=== PATIENT | male | born 1950 | race Caucasian/White ===

== ENCOUNTER 2021-07-04 19:20 | Inpatient (IN) | payer OTHER ==
[~2021-07-04] VITALS: Ht 177.8 cm; Wt 62.9 kg
--- NOTE | 2021-07-04 19:25 | NUR ---
Patient to ER bed 03 to gown for evaluation. Side rails up. Addendum: 07/04/21 at 2330 by KULWINDER Patient will be admitted to care of DR CHAPA. Admitted to unit. Will go to room . Belongings list completed. Complete and up to date summary report printed. SBAR report to be given MARIEL ABDI at bedside with opportunity for questions.
--- NOTE | 2021-07-04 19:25 | NUR ---
Report given to Lefty ABDI
[2021-07-04 19:29] VITALS: BP_SYST 165
--- NOTE | 2021-07-04 19:44 | NUR ---
rec report from Josi ABDI. pt in room getting xray at bedside. pt presented to the er withy left anckle pain after he was trimming tree at home from a top of a wall and lost balance and fell down and rolled his left ankle. pt drove himself here. patient is unable to move left foot but does have 2+ cap refill on toes. incident of fall happened about an hour ago. HX hypertension Addendum: 07/04/21 at 6 by KULWINDER pt denies hitting head
[2021-07-04] MEDS ORDERED: KETOROLAC TROMETHAMINE 60 MG/2 ML VIAL IM ONE (19:45)
[2021-07-04] MEDS ORDERED: MORPHINE 4 MG INJ. 4 MG/ML VIAL IVP ONE (20:00)
[2021-07-04] MEDS ORDERED: NACL 0.9% 1,000 ML IV ONE (20:15)
--- NOTE | 2021-07-04 20:54 | NUR ---
EKG PRINTED AND GIVEN TO FOR INTERPRETATION.
[2021-07-04 21:11] LABS: ANION GAP 8 (5-15); CALCIUM 8.3 mg/dL (8.4-11.0); CHLORIDE 108 mmol/L (98-107); CREATININE 2.42 mg/dL (0.55-1.30); GLUCOSE 86 mg/dL (70-99); POTASSIUM 4.7 mmol/L (3.5-5.1); SODIUM SERUM 142 mmol/L (136-145); UREA NITROGEN, BLOOD 27 mg/dL (8-21)
[2021-07-04 21:14] LABS: INR 1.1 (0.80-1.20); PROTHROMBIN TIME 11.1 SECS (9.5-12.5)
[2021-07-04 21:16] LABS: ALANINE AMINOTRANSFERASE 24 U/L (12-78); ALBUMIN 3.8 g/dL (3.4-4.8); ASPARTATE AMINOTRANSFERASE 25 U/L (10-37); TOTAL BILIRUBIN 0.2 mg/dL (0.0-1.0)
[2021-07-04 21:21] LABS: BASOPHILS % (AUTO) 0.5 % (0.0-2.0); EOSINOPHILS % (AUTO) 0.4 % (0.0-4.0); HEMATOCRIT 36.8 % (36-54); HEMOGLOBIN 12.5 g/dL (14.0-18.0); LYMPHOCYTES # (AUTO) 1.3 K/uL (1.0-5.5); MEAN CORPUSCULAR HEMOGLOBIN 31 pg (27-31); MEAN CORPUSCULAR HGB CONC 34 % (32-36); MEAN CORPUSCULAR VOLUME 91 fL (79.0-98.0); MONOCYTES # (AUTO) 0.7 K/uL (0.0-1.0); MONOCYTES % (AUTO) 8.5 % (1.7-9.3); NEUTROPHILS % (AUTO) 74.6 % (40.0-70.0); PLATELET COUNT (AUTO) 245 K/uL (130-430); RED BLOOD CELL COUNT(AUTO) 4.04 MIL/uL (4.2-6.2); RED CELL DISTRIBUTION WIDTH 15.1 % (9.0-15.0); WHITE BLOOD COUNT (AUTO) 8.1 K/uL (4.8-10.8)
[2021-07-04] MEDS ORDERED: NALOXONE HCL 0.4 MG/ML AMP (NARCAN) IVP PRN ×2 (22:00)
[2021-07-04] MEDS ORDERED: MAGNESIUM SULFATE 50 ML IV PRN (22:00)
[2021-07-04] MEDS ORDERED: MORPHINE 2 MG/ML INJ. SYRINGE IVP PRN (22:00)
[2021-07-04] MEDS ORDERED: POTASSIUM CHLORIDE 20 MEQ TAB.PRT.SR PO PRN (22:00)
[2021-07-04] MEDS ORDERED: ONDANSETRON HCL 4 MG/2 ML VIAL IVP PRN (22:00)
[2021-07-04] MEDS ORDERED: LORazepam 2 MG/ML VIAL IVP PRN (22:00)
[2021-07-04] MEDS ORDERED: ACETAMINOPHEN 325 MG TABLET PO PRN (22:00)
[2021-07-04] MEDS ORDERED: DOCUSATE SODIUM 100 MG CAPSULE PO PRN (22:00)
[2021-07-04] MEDS ORDERED: MUPIROCIN 2% TOPICAL OINTMENT 22 GM NS PRN (22:00)
--- NOTE | 2021-07-04 22:39 | NUR ---
PT UNABLE TO PROVIDE URINE SAMPLE
[2021-07-04] MEDS: ZOLPIDEM TARTRATE 5 MG TABLET PO PRN (23:56)
[2021-07-04] MEDS: METOPROLOL TARTRATE 25 MG TABLET PO SCH (23:56)
--- NOTE | 2021-07-05 | NUR ---
ADMISSION NOTE Received patient from ER via gurney. Patient admitted with diagnosis of LT ANKLE FX. Patient is awake, alert, oriented X . Patient oriented to hospital room, call light, toileting, pain management and safety-teach back done. room number is . Personal belongings checked and Belongings List documented. Call light within reach.
[2021-07-05] MEDS: MORPHINE 2 MG/ML INJ. SYRINGE IVP PRN ×5 (00:09→20:29)
[2021-07-05 02:00] VITALS: BP_SYST 135
--- NOTE | 2021-07-05 03:22 | NUR ---
MORPHINE SULFATE 2 MG IVP given for pain & helpful .
--- NOTE | 2021-07-05 04:09 | NUR ---
CONSULTATION PAGED/CALLED Reason for Consultation: LEFT ANKLE FX Person Who was Notified: MARLENA Consulting Physician: Rehab Tech Specialty: Ordering Physician:
[2021-07-05 06:18] LABS: BASOPHILS % (AUTO) 0.6 % (0.0-2.0); EOSINOPHILS # (AUTO) 0.1 K/uL (0.0-0.4); EOSINOPHILS % (AUTO) 0.9 % (0.0-4.0); HEMATOCRIT 34.4 % (36-54); HEMOGLOBIN 11.5 g/dL (14.0-18.0); LYMPHOCYTES # (AUTO) 2.1 K/uL (1.0-5.5); LYMPHOCYTES % (AUTO) 27.6 % (20.5-51.5); MEAN CORPUSCULAR HEMOGLOBIN 31 pg (27-31); MEAN CORPUSCULAR HGB CONC 33 % (32-36); MEAN CORPUSCULAR VOLUME 92 fL (79.0-98.0); MONOCYTES # (AUTO) 0.8 K/uL (0.0-1.0); MONOCYTES % (AUTO) 10.9 % (1.7-9.3); NEUTROPHILS # (AUTO) 4.6 K/uL (1.8-7.7); PLATELET COUNT (AUTO) 226 K/uL (130-430); RED BLOOD CELL COUNT(AUTO) 3.74 MIL/uL (4.2-6.2); RED CELL DISTRIBUTION WIDTH 15.4 % (9.0-15.0); WHITE BLOOD COUNT (AUTO) 7.7 K/uL (4.8-10.8)
[2021-07-05 06:33] LABS: ANION GAP 6 (5-15); CALCIUM 7.8 mg/dL (8.4-11.0); CHLORIDE 108 mmol/L (98-107); CREATININE 2.04 mg/dL (0.55-1.30); GLUCOSE 102 mg/dL (70-99); SODIUM SERUM 140 mmol/L (136-145); UREA NITROGEN, BLOOD 29 mg/dL (8-21)
[2021-07-05 08:10] VITALS: BP_SYST 139
--- NOTE | 2021-07-05 08:10 | NUR ---
Opening Note Patient is laying in bed awake. A/O x4. No apparent distress noted. Vitals as charted. Call light within reach. Safety and fall precautions in place. All needs met.
[2021-07-05] MEDS: METOPROLOL TARTRATE 25 MG TABLET PO SCH ×2 (09:11→20:26)
--- NOTE | 2021-07-05 09:40 | NUR ---
Spoke with Dr. Pradhan Spoke with Dr. Pradhan. Patient will not be having surgery today. Okay to take off NPO. Elevate left ankle and ice per doctor Carolynn. He will be by later today to see patient.
[2021-07-05] MEDS: HEPARIN SODIUM,PORCINE 5,000 UNITS/ML VIAL SUBCUT SCH ×2 (09:54→20:30)
--- NOTE | 2021-07-05 09:55 | NUR ---
Note Administered pain medication as charted. Pain 10/10 on left lower extremity. Call light within reach. Safety and fall precautions in place. All needs met.
[2021-07-05 12:10] VITALS: BP_SYST 144
--- NOTE | 2021-07-05 14:50 | NUR ---
Note Spoke with dipak Dong and provided updates on patient.
--- NOTE | 2021-07-05 15:08 | NUR ---
Pain Medication Administered pain medication as charted.
[2021-07-05 16:10] VITALS: BP_SYST 139
--- NOTE | 2021-07-05 19:00 | NUR ---
Closing Note Patient is laying in bed awake watching television. No apparent distress noted. Call light within reach. Safety and fall precautions in place. All needs met. Endorsed care to shift production supervisor RN.
[2021-07-05 20:00] VITALS: BP_SYST 126
--- NOTE | 2021-07-05 20:00 | NUR ---
Patient left leg kept elevated to pillow with good peripheral sensation able to wiggle toes, pain on movement , per patient Dr. Pradhan came in the afternoon and surgery tommorow instructed NPO post midnight, safety/fall precaution instructed , pain management verbalized understanding.
[2021-07-05] MEDS: D5NS 1,000 ML IV SCH (22:52)
[2021-07-06] VITALS (7 sets, daily range): BP systolic 116–140
--- NOTE | 2021-07-06 00:30 | NUR ---
Patient complaining of severe pain left ankle cold pack applied, elevated to pillow , due pain meds given will monitor, safety fall precaution initiated.
[2021-07-06] MEDS: MORPHINE 2 MG/ML INJ. SYRINGE IVP PRN ×5 (00:40→23:43)
[2021-07-06] MEDS: ZOLPIDEM TARTRATE 5 MG TABLET PO PRN (01:11)
[2021-07-06 01:41] LABS: BILIRUBIN,URINE NEGATIVE (NEGATIVE); BLOOD, URINE NEGATIVE (NEGATIVE); CLARITY/URINE CLEAR (CLEAR); COLOR,URINE YELLOW (YELLOW); GLUCOSE,URINE NEGATIVE (NEGATIVE); KETONES,URINE NEGATIVE (NEGATIVE); LEUKOCYTE ESTERASE ,URINE NEGATIVE (NEGATIVE); NITRITE, URINE NEGATIVE (NEGATIVE); PROTEIN URINE NEGATIVE (NEGATIVE); UROBILINOGEN,URINE 0.2 (0.2-1.0)
--- NOTE | 2021-07-06 04:30 | NUR ---
Patient awake left ankle pain is tolerable as verbalized refused to put ice pack /elevate to pillow and said his more comfortable with out pillow
[2021-07-06 05:57] LABS: BASOPHILS # (AUTO) 0.1 K/uL (0.0-0.2); BASOPHILS % (AUTO) 0.8 % (0.0-2.0); EOSINOPHILS # (AUTO) 0.1 K/uL (0.0-0.4); HEMATOCRIT 32.9 % (36-54); LYMPHOCYTES # (AUTO) 2.1 K/uL (1.0-5.5); LYMPHOCYTES % (AUTO) 30.6 % (20.5-51.5); MEAN CORPUSCULAR HEMOGLOBIN 31 pg (27-31); MEAN CORPUSCULAR HGB CONC 33 % (32-36); MEAN CORPUSCULAR VOLUME 92 fL (79.0-98.0); MONOCYTES # (AUTO) 0.8 K/uL (0.0-1.0); MONOCYTES % (AUTO) 11.9 % (1.7-9.3); NEUTROPHILS # (AUTO) 3.8 K/uL (1.8-7.7); NEUTROPHILS % (AUTO) 55.7 % (40.0-70.0); PLATELET COUNT (AUTO) 207 K/uL (130-430); RED BLOOD CELL COUNT(AUTO) 3.57 MIL/uL (4.2-6.2); RED CELL DISTRIBUTION WIDTH 15.4 % (9.0-15.0); WHITE BLOOD COUNT (AUTO) 6.7 K/uL (4.8-10.8)
[2021-07-06 06:15] LABS: ANION GAP 3 (5-15); CALCIUM 7.7 mg/dL (8.4-11.0); CHLORIDE 105 mmol/L (98-107); CREATININE 1.54 mg/dL (0.55-1.30); GLUCOSE 87 mg/dL (70-99); POTASSIUM 4.2 mmol/L (3.5-5.1); SODIUM SERUM 133 mmol/L (136-145); UREA NITROGEN, BLOOD 28 mg/dL (8-21)
--- NOTE | 2021-07-06 06:53 | NUR ---
Sleeping no sign of acute discomfort, NPO since midnight on IV hydration
[2021-07-06] MEDS: HEPARIN SODIUM,PORCINE 5,000 UNITS/ML VIAL SUBCUT SCH ×2 (09:00→21:00)
[2021-07-06] MEDS: METOPROLOL TARTRATE 25 MG TABLET PO SCH ×2 (09:04→21:21)
--- NOTE | 2021-07-06 09:16 | NUR ---
Note Pain medication administered as charted.
[2021-07-06] MEDS: D5NS 1,000 ML IV SCH ×2 (09:24→21:23)
--- NOTE | 2021-07-06 09:28 | NUR ---
Spoke with Dr. Pradhan Spoke with Dr. Pradhan to receive telephone order for scheduled surgery.
--- NOTE | 2021-07-06 09:30 | NUR ---
Note Spoke with Doctor Pradhan to get an order for patient's scheduled surgery.
--- NOTE | 2021-07-06 10:30 | NUR ---
Note Anesthesiologist at bedside. He would like patient to be cleared by Dr. Rivers before surgery.
--- NOTE | 2021-07-06 13:40 | NUR ---
Note Family and Dr. Rivers at bedside. No new orders given at this time. Dr. Rivers will speak with anesthesia regarding clearance for surgery.
--- NOTE | 2021-07-06 17:29 | NUR ---
Note Administered pain medication as charted.
--- NOTE | 2021-07-06 18:43 | NUR ---
Closing Notes Patient is sitting up in bed eating dinner. No apparent distress noted. Call light within reach. Safety and fall precautions in place. All needs met. Will endorse care to psychotherapist social worker RN.
--- NOTE | 2021-07-06 21:35 | NUR ---
Heparin Dr. Pradhan at nursing station and per MD kee to hold Heparin dose tonight.
[2021-07-07] VITALS (17 sets, daily range): BP systolic 139–160
[2021-07-07] MEDS: MORPHINE 2 MG/ML INJ. SYRINGE IVP PRN ×2 (05:24→22:06)
--- NOTE | 2021-07-07 05:24 | NUR ---
Closing notes/Pain/NPO Pt alert, awake, c/o severe pain L. ankle. BP 108/77 HR 60. Medicated with Morphine 4mg IVP as needed. Pt maintained NPO after midnight. IVF infusing at ordered rate L. FA 20G clear and patent. Bed low, locked, siderails up x2. To endorse to AM nurse.
[2021-07-07 06:15] LABS: BASOPHILS # (AUTO) 0.1 K/uL (0.0-0.2); BASOPHILS % (AUTO) 0.9 % (0.0-2.0); EOSINOPHILS # (AUTO) 0.1 K/uL (0.0-0.4); HEMATOCRIT 34.1 % (36-54); HEMOGLOBIN 11.4 g/dL (14.0-18.0); LYMPHOCYTES % (AUTO) 30.1 % (20.5-51.5); MEAN CORPUSCULAR HEMOGLOBIN 31 pg (27-31); MEAN CORPUSCULAR HGB CONC 33 % (32-36); MEAN CORPUSCULAR VOLUME 92 fL (79.0-98.0); MONOCYTES # (AUTO) 0.8 K/uL (0.0-1.0); NEUTROPHILS # (AUTO) 3.8 K/uL (1.8-7.7); PLATELET COUNT (AUTO) 193 K/uL (130-430); RED BLOOD CELL COUNT(AUTO) 3.71 MIL/uL (4.2-6.2); RED CELL DISTRIBUTION WIDTH 15.3 % (9.0-15.0); WHITE BLOOD COUNT (AUTO) 6.7 K/uL (4.8-10.8)
[2021-07-07 06:33] LABS: ANION GAP 7 (5-15); CALCIUM 7.3 mg/dL (8.4-11.0); CHLORIDE 107 mmol/L (98-107); CREATININE 1.61 mg/dL (0.55-1.30); GLUCOSE 99 mg/dL (70-99); POTASSIUM 4.7 mmol/L (3.5-5.1); SODIUM SERUM 138 mmol/L (136-145); UREA NITROGEN, BLOOD 24 mg/dL (8-21)
--- NOTE | 2021-07-07 08:00 | NUR ---
Initial notes Awake, alert. Pain is controlled. Keep NPO for surgery today. No distress. Call light within reach. Enc to call for help as needed.
[2021-07-07] MEDS: HEPARIN SODIUM,PORCINE 5,000 UNITS/ML VIAL SUBCUT SCH (08:21)
[2021-07-07] MEDS: METOPROLOL TARTRATE 25 MG TABLET PO SCH ×2 (08:28→21:15)
[2021-07-07] MEDS: D5NS 1,000 ML IV SCH ×2 (11:30→22:10)
--- NOTE | 2021-07-07 11:53 | NUR ---
Discharge Planning: DCP faxed pt DC planning referral to [facility]#[phone] DCP to follow up. Addendum: 07/07/21 at 1506 by Kelli Chua DP [facility]#[phone] accepted pt to [facility] pending dc order, DCP arranged transport with [facility] [phone] Will Call [facility].
--- NOTE | 2021-07-07 13:45 | NUR ---
Notes- Patient family called and was very upset and was yelling on the phone. Patient was upset why patient still in the room and supposed to be a 1300 surgery. Informed family that they gonna pick him up anytime soon and i don't have any control about the time of surgery.
--- NOTE | 2021-07-07 13:55 | NUR ---
Patient went to surgery at this time.
[2021-07-07] MEDS ORDERED: SUCCINYLCHOLINE CHLORIDE 20 MG/ML(QUELICIN) ONE (14:12)
[2021-07-07] MEDS ORDERED: NS IRRIG SOLN 1000 ML IR ONE (14:12)
[2021-07-07] MEDS ORDERED: HYDROmorphone 2 MG/ML VIAL ONE (14:12)
[2021-07-07] MEDS ORDERED: SEVOFLURANE 15 MIN GAS INH ONE (14:12)
[2021-07-07] MEDS ORDERED: CEFAZOLIN 2 GM IVPB PREMIX 50 ML IV ONE (14:12)
[2021-07-07] MEDS ORDERED: ePHEDrine sulfate 50 MG/ML VIAL ONE (14:12)
[2021-07-07] MEDS ORDERED: METOCLOPRAMIDE HCL 10 MG/2 ML VIAL ONE (14:12)
[2021-07-07] MEDS ORDERED: MIDAZOLAM HCL 2 MG/2 ML VIAL (VERSED) ONE (14:12)
[2021-07-07] MEDS ORDERED: NS 1000 ML IV.SOLN IV ONE (14:12)
[2021-07-07] MEDS ORDERED: ONDANSETRON HCL 4 MG/2 ML VIAL ONE (14:12)
[2021-07-07] MEDS ORDERED: ETOMIDATE 20 MG/ 10 ML VIAL (AMIDATE) ONE (14:12)
--- NOTE | 2021-07-07 16:56 | NUR ---
PATIENT HERE FROM OR, PACU NURSE WILL RECOVER PATIENT FOR 30 MIN.
--- NOTE | 2021-07-07 17:14 | NUR ---
patient was transferred to ICU from recovery. all belongings clothing and cellphone endorse to ICU nurse.
[2021-07-07] MEDS ORDERED: NACL 0.9% 1,000 ML IV SCH (17:15)
[2021-07-07] MEDS ORDERED: ONDANSETRON HCL 4 MG/2 ML VIAL IVP PRN (17:15)
[2021-07-07] MEDS ORDERED: METOCLOPRAMIDE HCL 10 MG/2 ML VIAL IVP PRN (17:15)
[2021-07-07] MEDS ORDERED: HYDROmorphone 1 MG/ML INJ. CARTRIDGE IVP PRN (17:15)
[2021-07-07] MEDS ORDERED: HYDROmorphone 2 MG/ML VIAL IVP PRN (17:15)
--- NOTE | 2021-07-07 17:45 | NUR ---
RN NOTES TOOK OVER CARE, PATIENT IS AWAKE AND ALERT, NOT IN ACUTE DISTRESS, O2 AT 2L/MIN VIA NC. SPO2 GOOD. LEFT RADIAL ARTERIAL LINE PATENT, ZEROED AND CALIBRATED. DENIES PAIN AT THIS TIME. VITAL SIGNS CHECKED AND RECORDED. NIECE AT BEDSIDE, UPDATED ON PATIENT CONDITION. WILL CONTINUE TO MONITOR PATIENT.
--- NOTE | 2021-07-07 18:10 | NUR ---
MD VISIT DR. ALEXANDRA HERE TO SEE PATIENT, SPOKE TO PT AND FAMILY REGARDING PLAN OF CARE.
--- NOTE | 2021-07-07 19:15 | NUR ---
Received SBAR report from TRINIDAD Brady. Patient is lying in bed. Awake, alert & oriented x 4. Patient able to follow commands. Left ankle elevated. Patient denies any pain at this time. Not on any distress. Respiration even & unlabored. Observed with ART on left radial artery. With IV fluid: D5NS @ 80 mL/hr. Call light kept within patient's reach. Reminded patient to call for help anytime. Will continue to monitor. Addendum: 07/07/21 at 2012 by [facility] handy worker Received SBAR report from TRINIDAD Brady. Patient is lying in bed. Awake, alert & oriented x 4. Patient able to follow commands. Left ankle elevated. Patient denies any pain at this time. Not on any distress. Respiration even & unlabored. Observed with ART on left radial artery. With IV fluid: D5NS @ 80 mL/hr. Call light kept within patient's reach. Reminded patient to call for help anytime. Will continue to monitor. Gwendolyn Muñoz RN
[2021-07-07] MEDS: CEFAZOLIN 1 GM IVPB PREMIX 50 ML IV SCH (21:16)
[2021-07-08] VITALS (20 sets, daily range): BP systolic 111–168
[2021-07-08] MEDS: MORPHINE 2 MG/ML INJ. SYRINGE IVP PRN ×2 (02:13→12:53)
[2021-07-08] MEDS: CEFAZOLIN 1 GM IVPB PREMIX 50 ML IV SCH (05:46)
[2021-07-08 06:09] LABS: BASOPHILS % (AUTO) 0.5 % (0.0-2.0); EOSINOPHILS % (AUTO) 0.2 % (0.0-4.0); HEMOGLOBIN 11.1 g/dL (14.0-18.0); LYMPHOCYTES # (AUTO) 1.2 K/uL (1.0-5.5); LYMPHOCYTES % (AUTO) 15.5 % (20.5-51.5); MEAN CORPUSCULAR HEMOGLOBIN 31 pg (27-31); MEAN CORPUSCULAR HGB CONC 34 % (32-36); MEAN CORPUSCULAR VOLUME 93 fL (79.0-98.0); MONOCYTES # (AUTO) 0.9 K/uL (0.0-1.0); NEUTROPHILS # (AUTO) 5.5 K/uL (1.8-7.7); NEUTROPHILS % (AUTO) 71.8 % (40.0-70.0); PLATELET COUNT (AUTO) 186 K/uL (130-430); RED BLOOD CELL COUNT(AUTO) 3.56 MIL/uL (4.2-6.2); RED CELL DISTRIBUTION WIDTH 14.9 % (9.0-15.0); WHITE BLOOD COUNT (AUTO) 7.7 K/uL (4.8-10.8)
[2021-07-08 07:18] LABS: ANION GAP 7 (5-15); CHLORIDE 104 mmol/L (98-107); CREATININE 1.77 mg/dL (0.55-1.30); GLUCOSE 108 mg/dL (70-99); POTASSIUM 4.4 mmol/L (3.5-5.1); SODIUM SERUM 135 mmol/L (136-145); UREA NITROGEN, BLOOD 24 mg/dL (8-21)
[2021-07-08 07:41] LABS: CALCIUM 6.9 mg/dL (8.4-11.0)
[2021-07-08] MEDS ORDERED: ENOXAPARIN SODIUM 40 MG/0.4 ML SYRINGE SUBCUT SCH (09:00)
[2021-07-08] MEDS ORDERED: CARVEDILOL 3.125 MG TABLET (COREG) PO SCH (09:00)
--- NOTE | 2021-07-08 12:47 | NUR ---
REPORT GIVEN TO LEONA FAN OF [facility].
--- NOTE | 2021-07-08 14:52 | NUR ---
DISCHARGE PT TRANSPORTED TO [facility], ALL PERSONAL BELONGINGS WITH PT.
== END 2021-07-08 15:00 | DRG 492 ==
LOC: SED 19:20 → STU 20:11 → SIC 07-07 17:06
PROVIDERS: ADMIT General Practice; ATTEND General Practice
PROC: 0QSK04Z Reposition Left Fibula with Internal Fixation Device, Open Approach (ICD-10-PCS; principal; 2021-07-04)
PROC: 0QSH04Z Reposition Left Tibia with Internal Fixation Device, Open Approach (ICD-10-PCS; 2021-07-04)
DX: S82.842A Displaced bimalleolar fracture of left lower leg, initial encounter for closed fracture (principal); N17.0 Acute kidney failure with tubular necrosis; I42.0 Dilated cardiomyopathy; I13.0 Hypertensive heart and chronic kidney disease with heart failure and stage 1 through stage 4 chronic kidney disease, or unspecified chronic kidney disease; I50.42 Chronic combined systolic (congestive) and diastolic (congestive) heart failure; S82.52XA Displaced fracture of medial malleolus of left tibia, initial encounter for closed fracture; F17.210 Nicotine dependence, cigarettes, uncomplicated; E83.51 Hypocalcemia; S82.832A Other fracture of upper and lower end of left fibula, initial encounter for closed fracture; Z20.822 Contact with and (suspected) exposure to COVID-19; W01.0XXA Fall on same level from slipping, tripping and stumbling without subsequent striking against object, initial encounter; N18.9 Chronic kidney disease, unspecified; J44.9 Chronic obstructive pulmonary disease, unspecified; Z63.4 Disappearance and death of family member; Y93.89 Activity, other specified; Y92.89 Other specified places as the place of occurrence of the external cause; Y99.8 Other external cause status
CPT/HCPCS: 36415; 71045; 80048; 80053; 81003; 83036; 83735; 83880; 85025; 85610-TC; 85730-TC; 87081; 93005; 93306; 96374; 99285; G0378; J0330; J0690; J1170; J1644; J1650; J2270; J2405; J2765; J3465; J3490; J7030